=== PATIENT | male | born 1955 | race Caucasian/White ===

== ENCOUNTER 2016-10-27 12:22 | Inpatient (IN) | payer OTHER ==
[~2016-10-27] VITALS: Ht 167.6 cm; Wt 123.2 kg
--- NOTE | 2016-10-27 13:05 | DIAGNOSTIC IMAGING REPORT ---
PROCEDURE: CT HEAD WITHOUT CONTRAST INDICATION: STROKE TECHNIQUE: Axial CT images were acquired through the head. Coronal and sagittal reformations were created. COMPARISON: None. FINDINGS: There is an old left frontal stroke. The left frontal horn is enlarged. The calvarium is intact. The paranasal sinuses and mastoid air cells are normally aerated. The extracranial soft tissues and orbits are normal. IMPRESSION: 1. Old left frontal infarct. No evidence of new or recent infarction. All CT scans at this facility use dose modulation, iterative reconstruction, and/or weight-based dosing when appropriate to reduce radiation dose to as low as reasonably achievable.
--- NOTE | 2016-10-27 13:07 | DIAGNOSTIC IMAGING REPORT ---
PROCEDURE: XR CHEST 1 VIEW INDICATION: SHORTNESS OF BREATH TECHNIQUE: Portable AP view 12:55 p.m. COMPARISON: Chest 10/16 eight FINDINGS: Lungs are clear. Heart and mediastinum are normal. Thorax is normal. IMPRESSION: 1. Negative chest.
--- NOTE | 2016-10-27 14:21 | ED ORDER SUMMARY ---
..... Patient: TARAH NINO OrderSheet [facility] VisitID: [id number] [place] [address] 61y, M Registration Date/Time: 10/27/2016 ORDER SHEET Weight: 120.2 kg (stated) Allergies: No Known Drug Allergy GENERAL ORDERS: Chest 1V Urgent (12:34 10/27/2016 [facility] (Ack 12:40 LTapper) (14:[address] CT Head wo Cont Urgent (12:34 10/27/2016 PHwvchinson DO) (Ack 12:40 LTapper) (14:15 EInderbitzen R.N.) Insurance Office Manager (Continuous) (12:10/27/2016 PHwv DO) (12:47 SStone R.N.) Carbamazepine (Tegretol) Urgent (12:35 10/27/2016 [facility] (Ack 12:40 LTapper) (13:07 EInderbitzen R.N.) Cardiac Panel Stat (12:35 10/27/2016 [facility]) (Ack 12:40 LTapper) (13:07 EInderbitzen R.N.) Fibrinogen Level Urgent (12:35 10/27/2016 PHwvchinson DO) (Ack 12:40 LTapper) (13:07 EInderbitzen R.N.) PT with INR Urgent (12:35 10/27/2016 [facility] (Ack 12:40 LTapper) (13:07 EInderbitzen R.N.) PTT Urgent (12:35 10/27/2016 [facility] (Ack 12:40 LTapper) (13:07 EInderbitzen R.N.) Stroke Panel Stat (12:35 10/27/2016 [facility]) (Ack 12:40 LTapper) (13:07 EInderbitzen R.N.) Type & Screen Urgent (12:35 10/27/2016 [facility] (Ack 12:40 LTapper) (13:07 EInderbitzen R.N.) EKG - ER Stat (12:35 10/27/2016 utson DO) (Ack 12:39 LTapper) (12:47 RKaruga) Notify MD if glucose <70 or >130 (12:35 10/27/2016 utson DO) (12:47 RKaruga) NPO (12:35 10/27/2016 utchinson DO) (12:48 SStone R.N.) Oxygen (2 L/min) (NC) (12:35 10/27/2016 PHutchinson DO) (12:48 SStone R.N.) POC Glucose (12:35 10/27/2016 utchinson ) (12:[facility] Pulse oximeter (12:35 10/27/2016 ) (12:48 SStone R.N.) Swallowing screen req on all pts prior to first PO intake (12:35 10/27/2016 ) (15:03 EInderbitzen R.N.) Vitals - Neuro (12:35 10/27/2016 [facility] (13:07 EInderbitzen R.N.) Call (Place call to): ( stroke attending) (13:45 10/27/2016 utchinson DO) (13:56 LTapper) Call (Place call to): ( stroke attending) (13:51 10/27/2016 utchinson DO) (13:52 [facility]) (Cancelled: Duplicate Order13:52 [facility]) Call (Place call to): (Dr Miranda) (13:52 10/27/2016 utchinson DO) (13:59 LTapper) UA-Culture if indicated Urgent (14:07 10/27/2016 utchin) (Ack 14:10 LTapper) (14:34 EHassan R.N.) Urine Drug Screen Urgent (14:07 10/27/2016 PHutchin) (Ack 14:10 LTapper) (14:34 EHassan R.N.) US Carotid Doppler Right Urgent (14:09 10/27/2016 chin) (Cancelled: Other14:10 [facility]) US Carotid Doppler Bilat Urgent (14:11 10/27/2016 [facility]) (Ack 14:24 LTapper) MRI Brain w/wo IACS w/wo Cont (Not Applicable) Urgent (14:50 10/27/2016 [facility]) (Ack 14:57 LTapper) MEDICATION ORDERS: Aspirin PO 325 mg (if not taken today) (13:45 10/27/2016 [facility]) (15:03 EInderbitjermaine R.N.) IV FLUIDS: IV NS : initial bolus 500 mL (1000 mL/hr), then 250 mL/hr for X2 (NOW) (12:34 10/27/2016 [facility]) (13:05 EInderbitzen R.N.) Zofran IV 4 mg (NOW) (12:34 10/27/2016 [facility]) (13:07 EInderbitzen R.N.) ORDER SHEET NOTES: [Electronically signed by Trinidad Whitfield R.N. (15:32 10/27/2016)] [Electronically signed by Ish Acevedo DO (21:37 10/27/2016)] [Electronically locked/signed by Trinidad Whitfield R.N. (15:32 10/27/2016)]
--- NOTE | 2016-10-27 14:21 | ED NURSING NOTES ---
Clinical Report - Nurses [facility] [address] [place] [place] [address] 10/27/2016 12:24 [id number] Triage time 12:33. Acuity: LEVEL 2. Chief Complaint: WEAKNESS, IMPAIRED SPEECH, FACIAL DROOP and DIFFICULTY WALKING and (right-sided facial droop baseline from previous CVA). ( blood sugar 91). ZA COMA SCORE: [place] Coma Scale: 15- eyes open spontaneously (4); best verbal response- oriented x 4 (5); best motor response- obeys commands (6). --12:38 Francine Quinones R.N. 12:33 10/27/16. BP: 134/79. HR: 59. RR: 16. O2 saturation: 96%. Temp: 98 F. Pain level now: 0/10. --12:38 Francine Quinones R.N. Weight: 120.2 kg stated. Height/Length: 66 inches Per Patient. BMI: 42.8. --12:35 Francine Quinones R.N. Medications Advair Diskus Inhalation, daily. Aspirin Oral 325mg. Atenolol Oral 25 mg, daily. BuPROPion HCl Oral 150mg, daily. Carisoprodol Oral 350 mg, 4x a day. Crestor Oral 10 mg, daily. Diazepam Oral 10 mg, at bedtime. Docusate Sodium Oral (Capsule 100 mg) 2 capsules. Doxazosin Mesylate Oral (Tablet 2 mg) 1 tablet. --12:40 Francine Quinones R.N. Hydrocodone-Acetaminophen Oral 10 mg, as needed. Naproxen Oral 500 mg, 2x a day as needed. Senna Oral (Tablet 8.6 mg) 2 tablets. Venlafaxine HCl Oral 50 mg, 2x a day. Ventolin HFA Inhalation 2 puffs, as needed. --12:40 Francine Quinones R.N. Allergies No Known Drug Allergy. --12:40 Francine Quinones R.N. History Arrived by private vehicle. Historian: patient and family (marine, ). Accompanied by family. Primary physician (reilly). This started last night. Patient was last known well (Unknown last known well). He has had difficulty with speech and trouble walking. ( blood sugar 91 on triage). Treatment TRAIN DIRECTOR: None. PAST MEDICAL HX: Hypertension. Stroke 2009. SOCIAL HX: Current every day light tobacco smoker- less than 1/2 a pack per day. No alcohol use or drug use. No infectious disease exposure. NUTRITIONAL RISK ASSESSMENT: The nutritional risk assessment revealed no deficiencies. FALL RISK ASSESSMENT: Fall risk assessment completed. Risk factors identified include patient age greater than 65 years and impairment of mobility. Fall interventions initiated. Patient placed on stretcher. Side rails up x2. Brakes on Bed in low position. Patient visible from nurses' station. Family at bedside. FUNCTIONAL ASSESSMENT: Functional assessment performed: requires assistance with the activities of daily living; uses cane. --12:38 Francine Quinones R.N. PAST MEDICAL HX: ( hypercholesterolemia). --12:40 Francine Quinones R.N. Interventions ID band on patient. STROKE protocol initiated. To treatment room. --12:38 Francine Quinones R.N. PHYSICAL ASSESSMENT To room via wheelchair. Baseline functional status: usually alert. Verbal response: usually appropriate. Motor response: usually pre-existing weakness in the right side ( pt slow to respond to verbal, word searching, but does answer appropriately). GENERAL / NEURO / PSYCH: Awake. Alert. Appears in no acute distress. Moderate slurred speech (slow to respond). Strength is unequal; left snack steward is greater than the right snack steward. He has had pre-existing weakness (facial droop). HEENT: Right-sided facial weakness. Pupils equal, round and reactive to light. EOM intact. RESPIRATORY: Breath sounds within normal limits. Respirations not labored. CVS: Cardiac rhythm: sinus bradycardia. SKIN: Skin is intact, warm and dry. --12:45 Francine Quinones R.N. NURSING PROGRESS NOTES 12:46 10/27/2016 Site #1 started via IV in the left antecubital space with an 20g angiocath; one attempt. Blood drawn: rainbow set. Labeled in the presence of the patient and sent to the lab. Saline lock flushed with 10 mL saline. --12:46 Stone, Francine, R.N. Monitoring of patient in place. Finger stick glucose: 91. Patient gowned. Head of bed elevated. Reassurance given. Patient transported to [place] by stretcher with tech. Patient identifiers checked. Call light placed in reach. Side rails up x 2. Bed placed in lowest position. Brakes of bed on. --12:46 Francine Quinones R.N. EKG time: (12:47 PM). EKG was performed by a tech and shown to the ED physician. Finger stick glucose: 91 mg/dL; performed by tech; result shown to the RN. --12:48 Bernarda Pathak Patient returned from [place] with tech. (12:56). --12:56 Francine Quinones R.N. ( report to KAYKAY Abdi to assume care.). --13:05 Francine Quinones R.N. 13:05 10/27/2016 Started bag #1 1000 mL IV Fluids IV NS (Saline); bolus of 500 mL over 30 minute(s) then at 250 mL/hr over 2 hour(s) via site #1 via IV pump. Allergies verified and confirmed 5 rights. IV patency established. IV site checked: no pain, redness, or swelling. IV flushed thoroughly pre- and post-medication administration. --13:05 Trinidad Whitfield R.N. 13:07 10/27/2016 Zofran (Ondansetron HCl) IVP 4 mg given over 1 minute(s) via site #1. Allergies verified and confirmed 5 rights. IV patency established. IV site checked: no pain, redness, or swelling. IV flushed thoroughly pre- and post-medication administration. IVP given by RN. --13:07 Trinidad Whitfield R.N. 13:08 10/27/16. BP: 125/85. HR: 55. RR: 19. O2 saturation: 99% on nasal cannula at 2 liters/minute. --13:08 Trinidad Whitfield R.N. 13:58 10/27/16. Cardiac rhythm: sinus bradycardia. The patient reports no complaints and he is calm and resting quietly. ( family at bedside). --13:58 Trinidad Whitfield R.N. 13:58 10/27/16. BP: 123/68. HR: 57. RR: 16. O2 saturation: 100%. Pain level now 0/10. --13:58 Trinidad Whitfield R.N. 14:31 10/27/16. Patient ID band checked for patient name and birthdate: patient confirmed. Instructions provided to collect clean catch urine and patient verbalized understanding. Clean catch urine collected with return of yellow-colored clear urine; sample sent to lab for urinalysis. Specimen labeled in the presence of the patient. --14:32 Trinidad Whitfield R.N. 14:59 10/27/16. Cardiac rhythm: sinus bradycardia. --14:59 Trinidad Whitfield R.N. 14:59 10/27/16. BP: 131/79. HR: 58. RR: 16. O2 saturation: 100%. Temp: 98.5 F. Pain level now 0/10. --14:59 Trinidad Whitfield R.N. 15:00 10/27/2016 IV Fluids IV NS Continued: at the rate of 250 mL/hr. 250 mL remaining bag #1. IV patency established. IV site checked: no pain, redness, or swelling. IV flushed thoroughly. --15:00 Trinidad Whitfield R.N. 15:03 10/27/2016 Aspirin PO Tablets 325 mg given. Allergies verified and confirmed 5 rights. --15:03 Trinidad Whitfield R.N. Swallow screen: dysphagia risk factors noted: coughing. He failed the swallow screen. --15:03 Trinidad Whitfield R.N. DISPOSITION / DISCHARGE 15:22 10/27/2016 Site #[address] upon admission; patent; flushes easily. --15:22 Trinidad Whitfield R.N. 15:23 10/27/16. Cardiac rhythm: sinus bradycardia. Condition at departure: improved and stable. The goals identified in the patient's plan of care were met. Admitted to Acute Care (209). Transported via stretcher with IV. Report was given to a nurse via a phone call. Report included patient's care, treatment, medications, reviewed medication reconcilliation, and condition (including any recent changes or anticipated changes). All questions were answered. Report was acknowledged and care was transferred. (to Hillary). Bed obtained and ready (209). ( to call floor when US is done.). --15:23 Trinidad Whitfield R.N. 14:58 10/27/16. BP: 131/79. HR: 58. RR: 16. O2 saturation: 100%. Temp: 98.5 F. Pain level now 0/10. 13:56 10/27/16. BP: 123/68. HR: 57. RR: 16. O2 saturation: 100%. Pain level now 0/10. 13:08 10/27/16. BP: 125/85. HR: 55. RR: 19. O2 saturation: 99% on nasal cannula at 2 liters/minute. 12:33 10/27/16. BP: 134/79. HR: 59. RR: 16. O2 saturation: 96%. Temp: 98 F. Pain level now: 0/10. --15:23 Trinidad Whitfield R.N. Locked/Released at 10/27/2016 15:32 by Trinidad Whitfield R.N.
--- NOTE | 2016-10-27 14:21 | ED NURSING NOTES ---
Clinical Report - Nurses [facility] [address] [place] [place] [address] 10/27/2016 12:24 [id number] Triage time 12:33. Acuity: LEVEL 2. Chief Complaint: WEAKNESS, IMPAIRED SPEECH, FACIAL DROOP and DIFFICULTY WALKING and (right-sided facial droop baseline from previous CVA). ( blood sugar 91). ZA COMA SCORE: [place] Coma Scale: 15- eyes open spontaneously (4); best verbal response- oriented x 4 (5); best motor response- obeys commands (6). --12:38 Francine Quinones R.N. 12:33 10/27/16. BP: 134/79. HR: 59. RR: 16. O2 saturation: 96%. Temp: 98 F. Pain level now: 0/10. --12:38 Francine Quinones R.N. Weight: 120.2 kg stated. Height/Length: 66 inches Per Patient. BMI: 42.8. --12:35 Francine Quinones R.N. Medications Advair Diskus Inhalation, daily. Aspirin Oral 325mg. Atenolol Oral 25 mg, daily. BuPROPion HCl Oral 150mg, daily. Carisoprodol Oral 350 mg, 4x a day. Crestor Oral 10 mg, daily. Diazepam Oral 10 mg, at bedtime. Docusate Sodium Oral (Capsule 100 mg) 2 capsules. Doxazosin Mesylate Oral (Tablet 2 mg) 1 tablet. --12:40 Francine Quinones R.N. Hydrocodone-Acetaminophen Oral 10 mg, as needed. Naproxen Oral 500 mg, 2x a day as needed. Senna Oral (Tablet 8.6 mg) 2 tablets. Venlafaxine HCl Oral 50 mg, 2x a day. Ventolin HFA Inhalation 2 puffs, as needed. --12:40 Francine Quinones R.N. Allergies No Known Drug Allergy. --12:40 Francine Quinones R.N. History Arrived by private vehicle. Historian: patient and family (marine, ). Accompanied by family. Primary physician (reilly). This started last night. Patient was last known well (Unknown last known well). He has had difficulty with speech and trouble walking. ( blood sugar 91 on triage). Treatment PRICING STRATEGIST: None. PAST MEDICAL HX: Hypertension. Stroke 2009. SOCIAL HX: Current every day light tobacco smoker- less than 1/2 a pack per day. No alcohol use or drug use. No infectious disease exposure. NUTRITIONAL RISK ASSESSMENT: The nutritional risk assessment revealed no deficiencies. FALL RISK ASSESSMENT: Fall risk assessment completed. Risk factors identified include patient age greater than 65 years and impairment of mobility. Fall interventions initiated. Patient placed on stretcher. Side rails up x2. Brakes on Bed in low position. Patient visible from nurses' station. Family at bedside. FUNCTIONAL ASSESSMENT: Functional assessment performed: requires assistance with the activities of daily living; uses cane. --12:38 Francine Quinones R.N. PAST MEDICAL HX: ( hypercholesterolemia). --12:40 Francine Quinones R.N. Interventions ID band on patient. STROKE protocol initiated. To treatment room. --12:38 Francine Quinones R.N. PHYSICAL ASSESSMENT To room via wheelchair. Baseline functional status: usually alert. Verbal response: usually appropriate. Motor response: usually pre-existing weakness in the right side ( pt slow to respond to verbal, word searching, but does answer appropriately). GENERAL / NEURO / PSYCH: Awake. Alert. Appears in no acute distress. Moderate slurred speech (slow to respond). Strength is unequal; left senior java j2ee developer is greater than the right senior java j2ee developer. He has had pre-existing weakness (facial droop). HEENT: Right-sided facial weakness. Pupils equal, round and reactive to light. EOM intact. RESPIRATORY: Breath sounds within normal limits. Respirations not labored. CVS: Cardiac rhythm: sinus bradycardia. SKIN: Skin is intact, warm and dry. --12:45 Francine Quinones R.N. NURSING PROGRESS NOTES 12:46 10/27/2016 Site #1 started via IV in the left antecubital space with an 20g angiocath; one attempt. Blood drawn: rainbow set. Labeled in the presence of the patient and sent to the lab. Saline lock flushed with 10 mL saline. --12:46 Stone, Francine, R.N. Monitoring of patient in place. Finger stick glucose: 91. Patient gowned. Head of bed elevated. Reassurance given. Patient transported to [place] by stretcher with tech. Patient identifiers checked. Call light placed in reach. Side rails up x 2. Bed placed in lowest position. Brakes of bed on. --12:46 Francine Quinones R.N. EKG time: (12:47 PM). EKG was performed by a tech and shown to the ED physician. Finger stick glucose: 91 mg/dL; performed by tech; result shown to the RN. --12:48 Bernarda Pathak Patient returned from [place] with tech. (12:56). --12:56 Francine Quinones R.N. ( report to KAYKAY Abdi to assume care.). --13:05 Francine Quinones R.N. 13:05 10/27/2016 Started bag #1 1000 mL IV Fluids IV NS (Saline); bolus of 500 mL over 30 minute(s) then at 250 mL/hr over 2 hour(s) via site #1 via IV pump. Allergies verified and confirmed 5 rights. IV patency established. IV site checked: no pain, redness, or swelling. IV flushed thoroughly pre- and post-medication administration. --13:05 Trinidad Whitfield R.N. 13:07 10/27/2016 Zofran (Ondansetron HCl) IVP 4 mg given over 1 minute(s) via site #1. Allergies verified and confirmed 5 rights. IV patency established. IV site checked: no pain, redness, or swelling. IV flushed thoroughly pre- and post-medication administration. IVP given by RN. --13:07 Trinidad Whitfield R.N. 13:08 10/27/16. BP: 125/85. HR: 55. RR: 19. O2 saturation: 99% on nasal cannula at 2 liters/minute. --13:08 Trinidad Whitfield R.N. 13:58 10/27/16. Cardiac rhythm: sinus bradycardia. The patient reports no complaints and he is calm and resting quietly. ( family at bedside). --13:58 Trinidad Whitfield R.N. 13:58 10/27/16. BP: 123/68. HR: 57. RR: 16. O2 saturation: 100%. Pain level now 0/10. --13:58 Trinidad Whitfield R.N. 14:31 10/27/16. Patient ID band checked for patient name and birthdate: patient confirmed. Instructions provided to collect clean catch urine and patient verbalized understanding. Clean catch urine collected with return of yellow-colored clear urine; sample sent to lab for urinalysis. Specimen labeled in the presence of the patient. --14:32 Trinidad Whitfield R.N. 14:59 10/27/16. Cardiac rhythm: sinus bradycardia. --14:59 Trinidad Whitfield R.N. 14:59 10/27/16. BP: 131/79. HR: 58. RR: 16. O2 saturation: 100%. Temp: 98.5 F. Pain level now 0/10. --14:59 Trinidad Whitfield R.N. 15:00 10/27/2016 IV Fluids IV NS Continued: at the rate of 250 mL/hr. 250 mL remaining bag #1. IV patency established. IV site checked: no pain, redness, or swelling. IV flushed thoroughly. --15:00 Trinidad Whitfield R.N. 15:03 10/27/2016 Aspirin PO Tablets 325 mg given. Allergies verified and confirmed 5 rights. --15:03 Trinidad Whitfield R.N. Swallow screen: dysphagia risk factors noted: coughing. He failed the swallow screen. --15:03 Trinidad Whitfield R.N. DISPOSITION / DISCHARGE 15:22 10/27/2016 Site #[address] upon admission; patent; flushes easily. --15:22 Trinidad Whitfield R.N. 15:23 10/27/16. Cardiac rhythm: sinus bradycardia. Condition at departure: improved and stable. The goals identified in the patient's plan of care were met. Admitted to Acute Care (209). Transported via stretcher with IV. Report was given to a nurse via a phone call. Report included patient's care, treatment, medications, reviewed medication reconcilliation, and condition (including any recent changes or anticipated changes). All questions were answered. Report was acknowledged and care was transferred. (to Hillary). Bed obtained and ready (209). ( to call floor when US is done.). --15:23 Trinidad Whitfield R.N. 14:58 10/27/16. BP: 131/79. HR: 58. RR: 16. O2 saturation: 100%. Temp: 98.5 F. Pain level now 0/10. 13:56 10/27/16. BP: 123/68. HR: 57. RR: 16. O2 saturation: 100%. Pain level now 0/10. 13:08 10/27/16. BP: 125/85. HR: 55. RR: 19. O2 saturation: 99% on nasal cannula at 2 liters/minute. 12:33 10/27/16. BP: 134/79. HR: 59. RR: 16. O2 saturation: 96%. Temp: 98 F. Pain level now: 0/10. --15:23 Trinidad Whitfield R.N. Locked/Released at 10/27/2016 15:32 by Trinidad Whitfield R.N.
--- NOTE | 2016-10-27 14:21 | ED ORDER SUMMARY ---
..... Patient: TARAH NINO OrderSheet [facility] VisitID: [id number] [place] [address] 61y, M Registration Date/Time: 10/27/2016 ORDER SHEET Weight: 120.2 kg (stated) Allergies: No Known Drug Allergy GENERAL ORDERS: Chest 1V Urgent (12:34 10/27/2016 [facility] (Ack 12:40 LTapper) (14:15 EInderbitzen R.N.) CT Head wo Cont Urgent (12:34 10/27/2016 PHnhchinson DO) (Ack 12:40 LTapper) (14:15 EInderbitzen R.N.) Telephone Operator (Continuous) (12:10/27/2016 PHnh DO) (12:47 SStone R.N.) Carbamazepine (Tegretol) Urgent (12:35 [facility]27/2016 [facility] (Ack 12:40 LTapper) (13:07 EInderbitzen R.N.) Cardiac Panel Stat (12:35 10/27/2016 [facility] (Ack 12:40 LTapper) (13:07 EInderbitzen R.N.) Fibrinogen Level Urgent (12:35 10/27/2016 PHnhchinson DO) (Ack 12:40 LTapper) (13:07 EInderbitzen R.N.) PT with INR Urgent (12:35 10/27/2016 [facility] (Ack 12:40 LTapper) (13:07 EInderbitzen R.N.) PTT Urgent (12:35 10/27/2016 [facility] (Ack 12:40 LTapper) (13:07 EInderbitzen R.N.) Stroke Panel Stat (12:35 10/27/2016 [facility] (Ack 12:40 LTapper) (13:07 EInderbitzen R.N.) Type & Screen Urgent (12:35 10/27/2016 [facility] (Ack 12:40 LTapper) (13:07 EInderbitzen R.N.) EKG - ER Stat (12:35 10/27/2016 utson DO) (Ack 12:39 LTapper) (12:47 RKaruga) Notify MD if glucose <70 or >130 (12:35 10/27/2016 utson DO) (12:47 RKaruga) NPO (12:35 10/27/2016 utchinson DO) (12:48 SStone R.N.) Oxygen (2 L/min) (NC) (12:35 10/27/2016 PHutchinson DO) (12:48 SStone R.N.) POC Glucose (12:35 10/27/2016 utchinson ) (12:47 [facility] Pulse oximeter (12:35 10/27/2016 ) (12:48 SStone R.N.) Swallowing screen req on all pts prior to first PO intake (12:35 10/27/2016 ) (15:03 EInderbitzen R.N.) Vitals - Neuro (12:35 10/27/2016 [facility]) (13:07 EInderbitzen R.N.) Call (Place call to): ( stroke attending) (13:45 10/27/2016 utchinson DO) (13:56 LTapper) Call (Place call to): ( stroke attending) (13:51 10/27/2016 utchinson DO) (13:52 [facility]) (Cancelled: Duplicate Order13:52 [facility]) Call (Place call to): (Dr Miranda) (13:52 10/27/2016 utchinson DO) (13:59 LTapper) UA-Culture if indicated Urgent (14:07 10/27/2016 utchin) (Ack 14:10 LTapper) (14:34 EHassan R.N.) Urine Drug Screen Urgent (14:07 10/27/2016 PHutchin) (Ack 14:10 LTapper) (14:34 EHassan R.N.) US Carotid Doppler Right Urgent (14:09 10/27/2016 chin) (Cancelled: Other14:10 [facility]) US Carotid Doppler Bilat Urgent (14:11 10/27/2016 [facility]) (Ack 14:24 LTapper) MRI Brain w/wo IACS w/wo Cont (Not Applicable) Urgent (14:50 10/27/2016 [facility]) (Ack 14:57 LTapper) MEDICATION ORDERS: Aspirin PO 325 mg (if not taken today) (13:45 10/27/2016 [facility]) (15:03 EInderbitjermaine R.N.) IV FLUIDS: IV NS : initial bolus 500 mL (1000 mL/hr), then 250 mL/hr for X2 (NOW) (12:34 10/27/2016 [facility]) (13:05 EInderbitzen R.N.) Zofran IV 4 mg (NOW) (12:34 10/27/2016 [facility]) (13:07 EInderbitzen R.N.) ORDER SHEET NOTES: [Electronically signed by Trinidad Whitfield R.N. (15:32 10/27/2016)] [Electronically signed by Ish Acevedo DO (21:37 10/27/2016)] [Electronically locked/signed by Trinidad Whitfield R.N. (15:32 10/27/2016)]
--- NOTE | 2016-10-27 14:21 | ED CLINICAL REPORT ---
Clinical Report - Physicians/Mid Levels [facility] [address] [place], [place] [address] 10/27/2016 12:24 Patient: TARAH NINO Time Seen: 12:34. Arrived- By private vehicle. Historian- patient. History limited by aphasia. Physical Exam limited by aphasia. HISTORY OF PRESENT ILLNESS Chief Complaint: WEAKNESS, DIFFICULTY STANDING and WALKING and IMPAIRED SPEECH. This started about 24 hours ago and is still present. It was gradual in onset and has been constant. The patient has had weakness of the left arm, left hand, left leg and left foot, (his pre-existing right side weakness is worse today - causing him to fall once this am - no injury; was assisted by caregiver). He has had difficulty with speech. At its maximum deficit described as moderate. When seen in the E.D.,deficit described as moderate. The patient has had dizziness. No seizure or blackouts. Usually is alert and oriented X3. Does not usually have normal mobility. (chronic right sided weakness - has caregiver for assistance with daily activities). Similar symptoms previously: Diagnosis: CVA. Recent medical care: Not recently seen/assessed. REVIEW OF SYSTEMS No fever, headache, head injury, chest pain or difficulty breathing. No cough, sputum production, sore throat, abdominal pain or nausea. No diarrhea, black stools, difficulty with urination, skin rash or enlarged lymph nodes. No vomiting or bloody stools. All systems otherwise negative, except as recorded above. PAST HISTORY See nurses notes. Hypertension. Chronic obstructive pulmonary disease. Hyperlipidemia. A single stroke in 2009 with residual deficit: hemiparesis. Arthritis. Chronic back pain. Medications: Hydrocodone-Acetaminophen Oral 10 mg, as needed. Naproxen Oral 500 mg, 2x a day as needed. Senna Oral (Tablet 8.6 mg) 2 tablets. Venlafaxine HCl Oral 50 mg, 2x a day. Ventolin HFA Inhalation 2 puffs, as needed. Advair Diskus Inhalation, daily. Aspirin Oral 325mg. Atenolol Oral 25 mg, daily. BuPROPion HCl Oral 150mg, daily. Carisoprodol Oral 350 mg, 4x a day. Crestor Oral 10 mg, daily. Diazepam Oral 10 mg, at bedtime. Docusate Sodium Oral (Capsule 100 mg) 2 capsules. Doxazosin Mesylate Oral (Tablet 2 mg) 1 tablet. Allergies: No Known Drug Allergy. SOCIAL HISTORY Smoker- current status unknown. No alcohol use or drug use. Residence: [place]. Marital status: (x 40 years). ADDITIONAL NOTES The nursing notes have been reviewed. PHYSICAL EXAM Vital Signs: 10/27/2016 12:33 BP: 134/79. HR: 59. RR: 16. O2 saturation: 96%. Temp: 98 F. Pain level now: 0/10. Appearance: Alert. The patient's speech is slurred. Odor of alcohol is not present. Head: Head atraumatic. Eyes: Pupils equal, round and reactive to light. ENT: Normal ENT inspection. Airway intact. Pharynx normal. Neck: Normal inspection. Neck supple. No meningeal signs or carotid bruit. CVS: Normal heart rate and rhythm. Heart sounds normal. Pulses normal. Respiratory: No respiratory distress. Breath sounds normal. Abdomen: Soft and nontender. Obese. Back: Normal inspection. Skin: Skin warm and dry. Normal skin color. No rash. Normal skin turgor. Extremities: Extremities exhibit normal ROM. No calf tenderness. Neuro: Alert. Abnormal verbal response (expressive aphasia). No receptive aphasia. Cranial nerve deficit present, as evidenced by right facial numbness. No facial droop or weakness, dilated pupil or EOM weakness or palsy. No ptosis, visual field deficit, loss of the corneal reflex, nystagmus or hearing deficit. No uvular deviation, tongue deviation, difficulty swallowing, trapezius weakness or sternocleidomastoid weakness. No cerebellar findings. No motor deficit. Sensory deficit present. Altered sensation to light touch on the right face, right arm and right leg. Reflex exam: right biceps 2+, left biceps 1+, right patellar 2+, left patellar 1+, right Achilles 0 and left Achilles 0. NIH Stroke Scale: score 4. Level of Consciousness: alert (0). LOC Questions: both (0). LOC Commands: both (0). Best gaze: normal (0). Visual field loss: none (0). Facial palsy: normal (0). Motor arm: no drift right arm (0) and no drift left arm (0). Motor leg: drift right leg (1). Limb ataxia: none (0). Sensory loss: mild to moderate (1). Aphasia: mild to moderate (1). Dysarthria: mild to moderate (1). Extinction and inattention: none (0). LABS, X-RAYS, AND EKG EKG: EKG time: (12:47). Rate: 60. Normal P waves. Normal ANDREW. Normal QRS complex. Nondiagnostic Q waves in lead III. Normal axis. Non-specific ST segment / T wave abnormalities. The study has been interpreted contemporaneously by me. Artifact present. Rhythm Strip #1: Normal sinus rhythm. Regular rhythm. Narrow QRS complexes. No ectopy. Chest X-ray: No acute disease. Normal lung markings present. Normal heart size. Mediastinum normal. Great vessels normal. Soft tissues abnormal. No infiltrate. Views: AP (portable). The X-rays were independently viewed by me, interpreted by the radiologist and discussed with the radiologist. CT Head: (IMPRESSION: 1. Old left frontal infarct. No evidence of new or recent infarction.). Head CT performed without contrast. The study was independently viewed by me, interpreted by the radiologist and discussed with the radiologist. Duplex Ultrasound: Right and left carotid study. IMPRESSION: 1. Mild bilateral ICA plaque formation 2. Bilateral ICA 16-49% stenosis. The exam was performed by a security installation technician. The study was independently viewed by me, interpreted by the radiologist and discussed with the radiologist. MRI Brain: Note- IMPRESSION: 1. Acute medial left frontal lobe infarct in the distribution of the left anterior cerebral artery 2. Old 3 x 7.5 cm left frontal lobe infarct. Study type: MRI with and without contrast. The study was independently viewed by me, interpreted by the radiologist and discussed with the radiologist. Laboratory Tests: UA-Culture if indicated: (FIDEL: 10/27/2016 14:20) ( MsgRcvd 10/27/2016 15:05) Final results Test Result Flag Units (Reference) URINE COLOR YELLOW URINE APPEARANCE CLEAR URINE GLUCOSE NEGATIVE (NEGATIVE) URINE BILIRUBIN NEGATIVE (NEGATIVE) URINE KETONE NEGATIVE (NEGATIVE) URINE SPECIFIC GRAVITY >= 1.030 (1.010-1.030) URINE PH 5.5 (5.0-8.0) URINE PROTEIN NEGATIVE (NEGATIVE) URINE UROBILINOGEN 0.2 EU/dL (0.2-1.0) URINE NITRITE NEGATIVE (NEGATIVE) URINE BLOOD NEGATIVE (NEGATIVE) URINE LEUK ESTERASE NEGATIVE (NEGATIVE) URINE RBC RARE rbc/hpf (0-1) URINE WBC 1-3 wbc/hpf (0-1) URINE EPITHELIAL CELLS 0-1 EPI/hpf (0-5) URINE BACTERIA TRACE (<1+) (NONE SEEN) URINE COMMENT CULT NOT INDICATED 1+ MUCOUSURINE CULTURES ARE SET-UP BASED ON THE FOLLOWING CRITERIA:POSITIVE NITRITEPOSITIVE LEUKOCYTE ESTERASEGREATER THAN 10 WHITE BLOOD CELLSMODERATE (2+) OR GREATER BACTERIA CBC w Diff: (FIDEL: 10/27/2016 12:40) ( MsgRcvd 10/27/2016 12:46) Final results Test Result Flag Units (Reference) WHITE BLOOD COUNT 10.5 K/uL (4.5-11.5) RED BLOOD COUNT 4.59 M/uL (4.50-5.90) HEMOGLOBIN 14.4 gm/dL (13.5-17.5) HEMATOCRIT 43.5 % (41.0-53.0) MEAN CELL VOLUME 95 fL (80-100) MEAN CORPUSCULAR HGB 32 pg (26-34) MEAN CORPUSCULAR HGB CONC 33 g/dL (31-37) RED CELL DISTRIBUTION WIDTH 13.6 % (11.6-14.8) PLATELET COUNT 248 K/uL (150-400) NEUTROPHIL % 66.5 % (50-75) LYMPH % 25.6 % (25-40) MONO % 6.2 % (3-14) EOSINOPHIL % 1.2 % (0-4) BASOPHIL % 0.5 % (0-2) PT with INR: (FIDEL: 10/27/2016 12:40) ( MsgRcvd 10/27/2016 12:56) Final results Test Result Flag Units (Reference) INR 1.0 (0.8-1.2) Low Intensity Therapy: INR 1.5-2.0 PT range 18.5-23.1Mod.Intensity Therapy: INR 2.0-3.0 PT range 23.1-31.5High Intensity Therapy: INR 2.5-3.5 PT range 27.4-35.5High Intensity Therapy 2: INR 3.0-4.0 PT range 31.5-39.3 APTT 30 SECONDS (24-34) FIBRINOGEN 317 mg/dL (193-455) D-DIMER QUANTITATIVE 1.15 H ug/mLFEU (0.27-0.52) The primary value of this quantitative assay relates toits negative predictive value (i.e. exclusion) of pulmonaryembolism/deep vein thrombosis/DIC.Elevated levels of d-dimer may also occur with:, age, cancer, inflammation, liver disease,post-op, infection, hematoma, coronary disease, peripheralarteriopathy, bleeding disorders and thrombolytic treatment.Results should be correlated with other clinical andradiological data.Testing Methodology: Latex Immunoassay Urine Drug Screen: (FIDEL: 10/27/2016 14:20) ( MsgRcvd 10/27/2016 15:11) Final results Test Result Flag Units (Reference) AMPHETAMINE/METHAMPHETAMINE NEGATIVE (NEGATIVE) BARBITURATE NEGATIVE (NEGATIVE) BENZODIAZEPINE POSITIVE H (NEGATIVE) CANNABINOID POSITIVE H (NEGATIVE) COCAINE NEGATIVE (NEGATIVE) ECSTASY POSITIVE H (NEGATIVE) METHADONE NEGATIVE (NEGATIVE) OPIATE POSITIVE H (NEGATIVE) The urine drug screen is a qualitative screening test fordrug overdose and abuse. All screen results should beconsidered as presumptive.Drugs screened for are as follows:BenzodiazepinesCocaineAmphetamines/MetamphetaminesTHC (Tetrahydrocannabinol)OpiatesBarbituratesEcstasyMethadonePositive results are unconfirmed. For confirmation, notifythe lab for the specimen to be sent to the reference lab.All confirmations must be performed by a differentmethodology.The ingestion of natural herbal and plant productscontaining Ephedra/Ephedra metabolites can produce in urineone or more substances capable of cross reacting withamphetamine/methamphetamine immunoassays. These testsprovide a preliminary result only. A more specificalternative chemical method must be used to obtain aconfirmed analytical result. [id number]: (FIDEL: 10/27/2016 12:40) ( MsgRcvd 10/27/2016 13:19) Final results Test Result Flag Units (Reference) CARBAMAZEPINE/TEGRETOL 0.1 L ug/mL (4.0-12.0) CHEM 13 PANEL: (FIDEL: 10/27/2016 12:40) ( MsgRcvd 10/27/2016 13:09) Final results Test Result Flag Units (Reference) GLUCOSE 105 mg/dL (70-110) BUN 22 H mg/dL (7-18) CREATININE 1.4 H mg/dL (0.6-1.3) Estimated GFR 54.58 mL/min Estimated GFR- >60 mL/min Note: Persistent reduction over 3 months in eGFR<60 mL/min/1.73 m2 defines CKD. Patients with eGFR values>=60 mL/min/1.73 m2 may also have CKD if evidence ofpersistent proteinuria. Additional information may be foundat [email or web address].org. SODIUM 144 mmol/L (136-145) POTASSIUM 4.5 mmol/L (3.5-5.1) CHLORIDE 109 H mmol/L (98-107) CARBON DIOXIDE 26 mmol/L (21-32) CALCIUM 8.5 mg/dL (8.5-10.1) TOTAL PROTEIN 7.0 g/dL (6.4-8.2) ALBUMIN 4.1 g/dL (3.3-5.0) BILIRUBIN, TOTAL 0.6 mg/dL (0.0-1.0) ALKALINE PHOSPHATASE 69 U/L (46-116) AST (SGOT) 10 L U/L (15-37) ALT (SGPT) 25 U/L (12-78) MAGNESIUM 2.0 mg/dL (1.8-2.4) CPK 108 U/L (24-260) TROPONIN I <0.05 ng/mL (0.00-1.5) TROPONIN REFERENCE RANGE:<0.1 NEGATIVE0.1-1.5 INDETERMINANT>1.5 POSITIVE Type & Screen: (FIDEL: 10/27/2016 12:40) ( MsgRcvd 10/27/2016 14:02) Final results Test Result Flag Units (Reference) PATIENT BLOOD TYPE O Negative Above is a corrected result. Previously reported on ( MsgRcvd 10/27/2016 13:42) as: PATIENT BLOOD TYPE O Negative ANTIBODY SCREEN NEGATIVE . Pulse Oximetry: 10/27/2016 12:33 O2 saturation: 96%. (FIO2 - room air). Interpretation: normal. PROGRESS AND PROCEDURES Course of Care: May keep at [facility] with MRI and Carotid duplex. Neuro feels may have MRI tomorrow if cannot get today. May need echo if not recently done. Discussed case with hospitalist, (Ruben call placed 14:18). Reviewed test results. Agreed upon treatment plan. Discussed case with on-call health care provider, (Kush ( stroke fellow) call returned 14:00 call returned 15:21). Reviewed test results. Agreed upon treatment plan. Patient/family counseled. Old ED records reviewed. Admission orders written. Disposition: Admitted to Acute Care. Condition: stable and improved. CLINICAL IMPRESSION Nontraumatic cerebrovascular accident- thrombotic ischemic infarct involving left anterior cerebral artery. TPA given and patient last known well 3 or more hours prior to administration. TPA was not administered because the time patient was last known well was greater than 3 hours prior to arrival and exclusion criteria were present. No hemorrhagic infarct or subarachnoid hemorrhage. INSTRUCTIONS Your Current Medications: CONTINUE TAKING THE FOLLOWING MEDICATIONS: Advair Diskus Inhalation : daily. Aspirin Oral : 325mg. Atenolol Oral : 25 mg daily. BuPROPion HCl Oral : 150mg daily. Carisoprodol Oral : 350 mg 4x a day. Crestor Oral : 10 mg daily. Diazepam Oral : 10 mg at bedtime. Docusate Sodium Oral : Capsule 100 mg, 2 capsules. Doxazosin Mesylate Oral : Tablet 2 mg, 1 tablet. Hydrocodone-Acetaminophen Oral : 10 mg, prn. Naproxen Oral : 500 mg 2x a day, prn. Senna Oral : Tablet 8.6 mg, 2 tablets. Venlafaxine HCl Oral : 50 mg 2x a day. Ventolin HFA Inhalation : 2 puffs, prn. (Electronically signed by Ish Acevedo DO 10/27/2016 21:37)
[2016-10-27 16:15] VITALS: BP 141/91
--- NOTE | 2016-10-27 16:29 | DIAGNOSTIC IMAGING REPORT ---
PROCEDURE: US BILATERAL CAROTID DOPPLER INDICATION: UNILATERAL WEAKNESS TECHNIQUE: Color Doppler duplex imaging of the carotid and vertebral vessels. COMPARISON: None. FINDINGS: Mild plaque formation of the bifurcations bilaterally. Vessels are patent. Right common carotid artery peak systolic velocity 79 cm/second. Right internal carotid artery peak systolic velocity 83 cm/second. Right external carotid artery peak systolic velocity 80 cm/second. Right vyixpyjc-zs-oewvfc carotid artery ratio 1.1 Right vertebral artery peak systolic velocity 89 cm/second antegrade. Left common carotid artery peak systolic velocity 79 cm/second. Left internal carotid artery peak systolic velocity 90 cm/second. Left external carotid artery peak systolic velocity 65 cm/second. Left xlytrdfj-xh-oortxm carotid artery ratio an 1.1 Left vertebral artery peak systolic velocity 71 cm/second antegrade. IMPRESSION: 1. Mild bilateral ICA plaque formation 2. Bilateral ICA 16-49% stenosis Velocity criteria are extrapolated from diameter data as defined by the Society of Radiologists in Ultrasound Consensus Conference, Radiology 2003; 229; 340-346.
--- NOTE | 2016-10-27 16:29 | DIAGNOSTIC IMAGING REPORT ---
PROCEDURE: US BILATERAL CAROTID DOPPLER INDICATION: UNILATERAL WEAKNESS TECHNIQUE: Color Doppler duplex imaging of the carotid and vertebral vessels. COMPARISON: None. FINDINGS: Mild plaque formation of the bifurcations bilaterally. Vessels are patent. Right common carotid artery peak systolic velocity 79 cm/second. Right internal carotid artery peak systolic velocity 83 cm/second. Right external carotid artery peak systolic velocity 80 cm/second. Right oybuexzs-lh-ybyeci carotid artery ratio 1.1 Right vertebral artery peak systolic velocity 89 cm/second antegrade. Left common carotid artery peak systolic velocity 79 cm/second. Left internal carotid artery peak systolic velocity 90 cm/second. Left external carotid artery peak systolic velocity 65 cm/second. Left jyxjyagw-uz-clezkd carotid artery ratio an 1.1 Left vertebral artery peak systolic velocity 71 cm/second antegrade. IMPRESSION: 1. Mild bilateral ICA plaque formation 2. Bilateral ICA 16-49% stenosis Velocity criteria are extrapolated from diameter data as defined by the Society of Radiologists in Ultrasound Consensus Conference, Radiology 2003; 229; 340-346.
--- NOTE | 2016-10-27 20:24 | DIAGNOSTIC IMAGING REPORT ---
PROCEDURE: MR BRAIN W/WO CONTRAST INDICATION: Altered mental status, initial encounter TECHNIQUE: Noncontrast T1 sagittal and T2 coronal images of the brain. T2, FLAIR, gradient and diffusion axial images with ADC map. Pregadolinium thin-cut T1 sagittal and coronal images of the pituitary fossa. Following 20 ml of intravenous gadolinium, thin-cut T1 sagittal and coronal images of the pituitary fossa were obtained followed by FAT-SAT T1 axial images of the brain. COMPARISON: Head CT 10/27/2016 FINDINGS: Acute mesial left frontal lobe infarct (8 x 1.2 cm) in the distribution of the left anterior cerebral artery. There is no mass effect, hemorrhage or abnormal enhancement. Old 3 x 7.5 cm left frontal infarct. Mild ex vacuo margin of the left lateral ventricle. Normal sulci. Minor right frontal lobe chronic ischemic changes. Normal vascular flow voids. Mastoids and sinuses are clear. IMPRESSION: 1. Acute medial left frontal lobe infarct in the distribution of the left anterior cerebral artery 2. Old 3 x 7.5 cm left frontal lobe infarct 3. Results discussed with Dr. Acevedo and Dr. Miranda was paged.
--- NOTE | 2016-10-27 21:37 | ED MAR SUMMARY ---
..... Medication Administration Record [facility] [address] [place] [address] Patient: TARAH NINO Visit ID: [id number] 61y, M Weight: 120.2 kg Height/Length: 66 in BMI: 42.8 ALLERGIES: No Known Drug Allergy Start 13:05 10/27/2016 Trinidad Whitfield R.N., Continued Upon Disposition 15:10/27/2016 Trinidad Whitfield R.N. Medication Administered: IV NS (SALINE), Dose: IV Fluids over 2 hour(s), Rate: 250 mL/hr, Bolus: 500 mL over 30 minute(s), Dispensed: 1000 mL bag, Site: #1 left AC. Medication Ordered: IV NS : initial bolus 500 mL (1000 mL/hr), then 250 mL/hr for X2 (NOW). Given 13:07 10/27/2016 Trinidad Whitfield R.N. Medication Administered: ZOFRAN [IVP] (ONDANSETRON HCL), Dose: 4 mg IVP over 1 minute(s), Site: #1 left AC. Medication Ordered: Zofran IV 4 mg (NOW). Given 15:03 10/27/2016 Trinidad Whitfield R.N. Medication Administered: ASPIRIN [PO], Dose: 325 mg Tablets PO. Medication Ordered: Aspirin PO 325 mg (if not taken today).
--- NOTE | 2016-10-27 21:37 | ED DISCHARGE INSTRUCTIONS ---
Patient: TARAH NINO General Instructions [facility] VisitID: [id number] [address] [place] [address] 61y, M Registration Date/Time: 10/27/2016 Nontraumatic cerebrovascular accident- thrombotic ischemic infarct involving left anterior cerebral artery. TPA given and patient last known well 3 or more hours prior to administration. TPA was not administered because the time patient was last known well was greater than 3 hours prior to arrival and exclusion criteria were present. No hemorrhagic infarct or subarachnoid hemorrhage. INSTRUCTIONS Your Current Medications: CONTINUE TAKING THE FOLLOWING MEDICATIONS: Advair Diskus Inhalation : daily. Aspirin Oral : 325mg. Atenolol Oral : 25 mg daily. BuPROPion HCl Oral : 150mg daily. Carisoprodol Oral : 350 mg 4x a day. Crestor Oral : 10 mg daily. Diazepam Oral : 10 mg at bedtime. Docusate Sodium Oral : Capsule 100 mg, 2 capsules. Doxazosin Mesylate Oral : Tablet 2 mg, 1 tablet. Hydrocodone-Acetaminophen Oral : 10 mg, prn. Naproxen Oral : 500 mg 2x a day, prn. Senna Oral : Tablet 8.6 mg, 2 tablets. Venlafaxine HCl Oral : 50 mg 2x a day. Ventolin HFA Inhalation : 2 puffs, prn. (Electronically signed by Ish Acevedo DO 10/27/2016 21:37)
--- NOTE | 2016-10-27 21:37 | ED MAR SUMMARY ---
..... Medication Administration Record [facility] [address] [place] [address] Patient: TARAH NINO Visit ID: [id number] 61y, M Weight: 120.2 kg Height/Length: 66 in BMI: 42.8 ALLERGIES: No Known Drug Allergy Start 13:05 10/27/2016 Trinidad Whitfield R.N., Continued Upon Disposition 15:10/27/2016 Trinidad Whitfield R.N. Medication Administered: IV NS (SALINE), Dose: IV Fluids over 2 hour(s), Rate: 250 mL/hr, Bolus: 500 mL over 30 minute(s), Dispensed: 1000 mL bag, Site: #1 left AC. Medication Ordered: IV NS : initial bolus 500 mL (1000 mL/hr), then 250 mL/hr for X2 (NOW). Given 13:07 10/27/2016 Trinidad Whitfield R.N. Medication Administered: ZOFRAN [IVP] (ONDANSETRON HCL), Dose: 4 mg IVP over 1 minute(s), Site: #1 left AC. Medication Ordered: Zofran IV 4 mg (NOW). Given 15:03 10/27/2016 Trinidad Whitfield R.N. Medication Administered: ASPIRIN [PO], Dose: 325 mg Tablets PO. Medication Ordered: Aspirin PO 325 mg (if not taken today).
--- NOTE | 2016-10-27 21:37 | ED MED RECONCILIATION SUMMARY ---
Patient: TARAH NINO Medication Reconciliation Report [facility] VisitID: [id number] [address] [place] [address] 61y, M Registration Date/Time: 10/27/2016 Weight: 120.2 kg Height/Length: 66 in. BMI: 42.8 ALLERGIES: No Known Drug Allergy The patient's Home Medications are listed below: CONTINUE TAKING THE FOLLOWING MEDICATIONS: Advair Diskus Inhalation, daily Aspirin Oral 325mg Atenolol Oral 25 mg, daily BuPROPion HCl Oral 150mg, daily Carisoprodol Oral 350 mg, 4x a day Crestor Oral 10 mg, daily Diazepam Oral 10 mg, at bedtime Docusate Sodium Oral (100 mg) 2 capsules Doxazosin Mesylate Oral (2 mg) 1 tablet Hydrocodone-Acetaminophen Oral 10 mg Naproxen Oral 500 mg, 2x a day Senna Oral (8.6 mg) 2 tablets Venlafaxine HCl Oral 50 mg, 2x a day Ventolin HFA Inhalation 2 puffs The source(s) of the original Home Medication information: Not obtained. The following Medications were given to the patient in the Emergency Department: IV NS IV Fluids bolus 500 mL over 30 minute(s), then 250 mL/hr, administered: 10/27/2016 1:05:00 PM Zofran [IVP] IVP 4 mg, administered: 10/27/2016 1:07:00 PM Aspirin [PO] PO 325 mg, administered: 10/27/2016 3:03:00 PM The following Medications were prescribed to the patient: None.
--- NOTE | 2016-10-27 21:37 | ED DISCHARGE INSTRUCTIONS ---
Patient: TARAH NINO General Instructions [facility] VisitID: [id number] [address] [place] [address] 61y, M Registration Date/Time: 10/27/2016 Nontraumatic cerebrovascular accident- thrombotic ischemic infarct involving left anterior cerebral artery. TPA given and patient last known well 3 or more hours prior to administration. TPA was not administered because the time patient was last known well was greater than 3 hours prior to arrival and exclusion criteria were present. No hemorrhagic infarct or subarachnoid hemorrhage. INSTRUCTIONS Your Current Medications: CONTINUE TAKING THE FOLLOWING MEDICATIONS: Advair Diskus Inhalation : daily. Aspirin Oral : 325mg. Atenolol Oral : 25 mg daily. BuPROPion HCl Oral : 150mg daily. Carisoprodol Oral : 350 mg 4x a day. Crestor Oral : 10 mg daily. Diazepam Oral : 10 mg at bedtime. Docusate Sodium Oral : Capsule 100 mg, 2 capsules. Doxazosin Mesylate Oral : Tablet 2 mg, 1 tablet. Hydrocodone-Acetaminophen Oral : 10 mg, prn. Naproxen Oral : 500 mg 2x a day, prn. Senna Oral : Tablet 8.6 mg, 2 tablets. Venlafaxine HCl Oral : 50 mg 2x a day. Ventolin HFA Inhalation : 2 puffs, prn. (Electronically signed by Ish Acevedo DO 10/27/2016 21:37)
--- NOTE | 2016-10-27 21:37 | ED MED RECONCILIATION SUMMARY ---
Patient: TARAH NINO Medication Reconciliation Report [facility] VisitID: [id number] [address] [address] [place] [address] 61y, M Registration Date/Time: 10/27/2016 Weight: 120.2 kg Height/Length: 66 in. BMI: 42.8 ALLERGIES: No Known Drug Allergy The patient's Home Medications are listed below: CONTINUE TAKING THE FOLLOWING MEDICATIONS: Advair Diskus Inhalation, daily Aspirin Oral 325mg Atenolol Oral 25 mg, daily BuPROPion HCl Oral 150mg, daily Carisoprodol Oral 350 mg, 4x a day Crestor Oral 10 mg, daily Diazepam Oral 10 mg, at bedtime Docusate Sodium Oral (100 mg) 2 capsules Doxazosin Mesylate Oral (2 mg) 1 tablet Hydrocodone-Acetaminophen Oral 10 mg Naproxen Oral 500 mg, 2x a day Senna Oral (8.6 mg) 2 tablets Venlafaxine HCl Oral 50 mg, 2x a day Ventolin HFA Inhalation 2 puffs The source(s) of the original Home Medication information: Not obtained. The following Medications were given to the patient in the Emergency Department: IV NS IV Fluids bolus 500 mL over 30 minute(s), then 250 mL/hr, administered: 10/27/2016 1:05:00 PM Zofran [IVP] IVP 4 mg, administered: 10/27/2016 1:07:00 PM Aspirin [PO] PO 325 mg, administered: 10/27/2016 3:03:00 PM The following Medications were prescribed to the patient: None.
[2016-10-27 22:34] VITALS: BP 141/75
[2016-10-28] MEDS ORDERED: ASMANEX IN (00:13)
[2016-10-28] MEDS ORDERED: ATORVASTATIN CA10 MG PO (00:14)
[2016-10-28] MEDS ORDERED: BUPROPION HCL150 M3 PO (00:15)
[2016-10-28] MEDS ORDERED: CARISOPRODOL350 MG PO (00:15)
[2016-10-28] MEDS ORDERED: COLACE100 MG PO (00:16)
[2016-10-28] MEDS ORDERED: DIAZEPAM10 MG PO (00:16)
[2016-10-28] MEDS ORDERED: FLOVENT HFA110 MCG IN (00:17)
[2016-10-28] MEDS ORDERED: CARDURA2 MG PO (00:17)
[2016-10-28] MEDS ORDERED: NAPROXEN250 MG PO (00:19)
[2016-10-28] MEDS ORDERED: PHENERGAN EQUIV25 MG PO (00:20)
[2016-10-28] MEDS ORDERED: PANTOPRAZOLE SO40 MG PO (00:20)
[2016-10-28] MEDS ORDERED: VENTOLIN HFA IN (00:21)
[2016-10-28] MEDS ORDERED: SENNA-LAX8.6 MG PO (00:21)
--- NOTE | 2016-10-28 02:22 | HISTORY AND PHYSICAL ---
ADMITTED: 10/27/2016 HISTORY OF PRESENT ILLNESS: The patient is a 61-year-old white male, well known to me, who developed a very severe frontal headache in the morning of 10/26/2016. This persisted. At some point in time in the midmorning until early afternoon, he developed problems with his speech and some slight right-sided weakness and some difficulty swallowing. His caregiver called his , and his called, I believe, the [facility] ambulance crew and they came out to evaluate the patient some time on 2016. The ambulance crew did not feel he needed to go to the hospital. The patient continued to have difficulty this morning with difficulty with his speech and some slight weakness. His called my office and we suggested she bring him in. Before she left home, the patient became more confused and somewhat combative and we felt he should go directly to the emergency department. She took him there. He had a thorough evaluation and this included an initial brain CT scan, which showed an old frontal infarct, but no acute changes. He also had a carotid artery Doppler test done which showed no significant occlusion. Chest x-ray was normal. EKG was stable. He was admitted to the floor and an MRI scan was done this evening. The MRI scan showed a left frontal lobe medially located acute infarct with no mass effect and no evidence of intracranial hemorrhage. The images were then sent to the [facility] neurology consultants [facility]. Their initial thought was due to the time frame, he was not a candidate for thrombolysis or any attempt at clot extraction. He has been admitted for further care. MEDICAL/SURGICAL HISTORY: Past medical history: Remarkable for fairly longstanding hypertension. He had a left frontal stroke in 2009 and recovered fairly well from this. He had some slight dysarthria, but was generally fairly functional. Other problems include hyperlipidemia, obesity, lumbar disk disease, osteoarthritis, back muscle spasm, depression, and sleep apnea. Past surgical history: Remarkable for arthroscopic surgery on the right knee for a meniscus tear and anterior cruciate ligament tear done in 2007. MEDICATIONS: Include: 1. Atenolol 25 mg p.o. b.i.d. for blood pressure control. 2. Doxazosin 4 mg at bedtime to help with blood pressure and to help with urine flow. 3. Aspirin 325 mg daily. 4. Atorvastatin 10 mg daily. 5. Hydrocodone 10/acetaminophen 325 one 4 times daily and occasionally 5 times daily for pain control. 6. Oxycodone 10/acetaminophen 325 one-half or one tablet once or twice daily p.r.n. extreme pain. He is prescribed 30 of these, which last 3 months. 7. Other medications include bupropion 150 mg strength twice daily for depression. 8. Promethazine 12.5 mg 1 or 2 q.6 h. p.r.n. nausea. 9. CPAP mask at night. 10. Diazepam ------- 1 at bedtime p.r.n. for muscle tightness and anxiety. 11. Carisoprodol 350 mg 1 in the morning and 1 in the afternoon for back muscle spasm. 12. The patient does use an albuterol inhaler p.r.n. chest congestion and wheezing. 13. QVAR inhaler 2 puffs twice daily routinely if he is having ongoing flares of asthma. ALLERGIES: 1. NO KNOWN ALLERGIES. SOCIAL HISTORY: Indicates the patient is . He is from his currently due to financial concerns and a variety of social problems. The patient has been a smoker. He continues to smoke several cigarettes now and then, but not necessarily every day. He does not drink alcohol. 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 Since then, he has been disabled from working. FAMILY HISTORY: Remarkable for a father who around age 99, who may have had a stroke. The patient's mother around age 65 or so. She had diabetes and some type of cancer and of the cancer. REVIEW OF SYSTEMS: HEENT has been okay. Respiratory has been remarkable for some occasional asthma and bronchospasm problems. Gastrointestinal has been okay with no major nausea, vomiting, or diarrhea. Genitourinary: Remarkable for some difficulty with passing urine, but this has been controlled well with the doxazosin. Musculoskeletal: Remarkable for chronic low back pain as well as knee pain and shoulder pain issues and neck pain issues. Neurological: Remarkable for some slight dysarthria and some slight word -finding difficulties from his residual stroke. He has not really had any major weakness. He did have some right-sided weakness initially following the stroke, but this has pretty much resolved. Psychiatric: Remarkable for some depression issues. Skin: Remarkable for an inclusion cyst on the right mid back area. PHYSICAL EXAMINATION: GENERAL: Reveals the patient to be overweight. He is in no acute distress. VITAL SIGNS: Temperature is in the 97-98 range. Blood pressure is in the 140/75 range. Pulse is in the mid 50s to low 60s and regular. O2 saturation is 97% on 2 L per nasal prongs. HEENT: Head is normal. Ear canals and tympanic membranes are normal. Eyes show normal extraocular movements. Funduscopic exam shows flat discs but no obvious hemorrhage or exudates. Nose and throat are clear. NECK: Supple. Carotid pulses are normal. No bruits are heard. CHEST: Reveals some scattered rhonchi, left and right. No significant wheezing is noted. Breath sounds are generally decreased. HEART: Reveals normal S1 and S2 with no S3. There is a grade 1/6 systolic murmur along the left sternal border. Axillary areas show no masses. ABDOMEN: Obese with no organomegaly or mass. There is no tenderness. Bowel tones are normal. GENITALIA: Show a normal uncircumcised male. Heard catheter is in place. Testes are descended bilaterally. There is no evidence of testicular mass. There is no evidence of hernia. RECTAL: Reveals a normal external rectum. Digital exam reveals the prostate gland to be somewhat difficult to feel, but is not tremendously enlarged. There are no rectal masses. Stool is brownish and guaiac-negative. EXTREMITIES: Show trace edema, left and right. Dorsalis pedis +1 pulses are noted. The patient does seem to have equal sensation left and right on his feet. NEUROLOGIC: Reveals cranial nerves to show very slight right facial weakness. 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 There is no hyperreflexia. Cranial nerves are symmetric other than the slight right facial muscle weakness. SKIN: Normal except for the inclusion cyst in the right mid back area. LAB/IMAGING: Laboratory studies show UA to be normal with specific gravity of 1.030. Hemoglobin is 14.4, hematocrit is 47.5, white blood cell count is 10,500. PT/INR is 1.0, PTT is 30. Sodium is 144, potassium 4.5, chloride 109, CO2 28, glucose 105, BUN 22, creatinine 1.4. Alkaline phosphatase is 69, SGOT is 10, SGPT is 25. CPK is 108. Magnesium level is 2.0. Troponin I is less than 0.05. EKG shows sinus bradycardia with no acute changes. Brain CT scan done initially shows old left frontal infarct with no acute changes. Chest x-ray is normal. Carotid Doppler test reveals 16% to 49% narrowing of the left and right internal carotid arteries with some mild plaque. MRI scan shows left frontal infarct located medially in the distribution of the anterior cerebral artery. IMPRESSION: 1. The patient is presenting with left frontal lobe infarct. He has remote left frontal infarct from 2010 in the distribution of the middle cerebral artery vessels. 2. Other problems include longstanding hypertension. 3. Hyperlipidemia. 4. Obesity. 5. History of smoking. 6. Lumbar disk disease and osteoarthritis causing chronic pain issues. 7. Sleep apnea. 8. Chronic obstructive pulmonary disease with some problems with bronchospasm. 9. Urinary outflow obstruction, which has required placement of Heard catheter. PLAN: The patient is admitted. He will keep up with n.p.o. status. He will be scheduled for a swallow evaluation and physical therapy evaluation. He may possibly need a feeding tube. Blood pressure will be addressed with labetalol if systolic elevates greater than 180 or diastolic elevates greater than 120. He will be started on incentive spirometry. He will be started on pantoprazole to prevent ulcers in the stomach. He will be encouraged to sit up and to try to walk short distances beginning tomorrow. He will need Furniture Refinisher consult as he may need to be in a intermediate situation for recovery or at least will need home health care and home physical therapy. Case will be reviewed with the Neurology consultants at the [facility] tomorrow to see if they have any additional input. The patient will continue with aspirin at 300 mg by rectal suppository daily until he is able to swallow this.
[2016-10-28 03:19] VITALS: BP 118/43
[2016-10-28 07:11] VITALS: BP 113/62
[2016-10-28 11:44] VITALS: BP 133/76
--- NOTE | 2016-10-28 12:39 | DIAGNOSTIC IMAGING REPORT ---
PROCEDURE: 2-D M-mode echo Doppler CLINICAL INDICATION: CVA TECHNIQUE: Standard 2-D M-mode echo Doppler COMPARISON: None available FINDINGS: The aortic valve is normal without evidence for stenosis or insufficiency the mitral valve is normal in its configuration without vegetations apparent no stenosis or MR seen. Tricuspid valve exhibits trace TR with RV systolic pressure elevated at 41. The pulmonic valve is normal no embolic source seen on these valves left and right atrial dimension is normal LVH is present LV contractility is preserved with an ejection fraction of 62%. Right ventricle is increased in size moderately. With mild reduction of right ventricular function. RV systolic pressure elevated at 41 aortic root is seen to be increased in size and 4.0 cm pericardium is normal IMPRESSION: No embolic source seen Ejection fraction 62% with normal contraction RVE with mild decrease and function RVSP 41 LVH Aortic root enlarged and 4.0 cm Trace TR
[2016-10-28 14:44] VITALS: BP 142/85
[2016-10-28 18:58] VITALS: BP 146/69
[2016-10-28 22:27] VITALS: BP 145/71
[2016-10-29 02:40] VITALS: BP 129/68
[2016-10-29 06:45] VITALS: BP 149/76
[2016-10-29 10:35] VITALS: BP 151/78
[2016-10-29 14:39] VITALS: BP 158/85
[2016-10-29 18:32] VITALS: BP 143/83
[2016-10-29 22:53] VITALS: BP 137/86
[2016-10-30 04:00] VITALS: BP 142/72
[2016-10-30 06:56] VITALS: BP 141/75
[2016-10-30 10:36] VITALS: BP 133/76
[2016-10-30 14:35] VITALS: BP 149/84
[2016-10-30 18:14] VITALS: BP 174/78
[2016-10-30 23:52] VITALS: BP 139/81
[2016-10-31 03:21] VITALS: BP 127/77
[2016-10-31 07:20] VITALS: BP 144/87
[2016-10-31 10:30] VITALS: BP 136/71
[2016-10-31 14:24] VITALS: BP 152/80
[2016-10-31 18:17] VITALS: BP 135/80
[2016-10-31 21:40] VITALS: BP 138/80
[2016-11-01] MEDS ORDERED: ATENOLOL25 MG PO (00:14)
[2016-11-01] MEDS ORDERED: VICODIN HP1 TA1 PO (00:18)
[2016-11-01] MEDS ORDERED: ENDOCET1 TA3 PO (00:19)
[2016-11-01 02:34] VITALS: BP 117/74
[2016-11-01 07:16] VITALS: BP 147/94
[2016-11-01] MEDS ORDERED: CLOPIDOGREL75 MG PO (08:42)
--- NOTE | 2016-11-01 08:50 | Provider's Discharge Care Plan ---
Problem, Goal, Plan Problem List 1. Acute CVA (cerebrovascular accident) Goals: Improve disease control, Improve function, Improved health/wellness, Increase independence, Improve nutrition status Instructions: Follow up as directed, Take meds as directed, Reduce stress, Stop smoking, Reduce aspirin to 81 mg daily. Begin clopidogrel 75 mg daily. Continue atorvastatin. Work the physical therapy and speech therapy to regain function. Avoid smoking completely 2. Lumbar disc disease Goals: Improve disease control, Improve function, Improved health/wellness, Increase independence, Improve nutrition status Instructions: Follow up as directed, Increase activity level, Take meds as directed, Reduce stress, Stop smoking, Reduce hydrocodone/APAP dose to 1/2 tab every 4-6h as needed for pain. 3. Essential hypertension Goals: Improve disease control, Improve function, Improved health/wellness, Increase independence, Improve nutrition status Instructions: Follow up as directed, Increase activity level, Take meds as directed, Stop smoking, Take Atenolon at 25 mg every am only 4. Muscle spasm of back Goals: Improve disease control, Improve function, Improved health/wellness, Increase independence Instructions: Follow up as directed, Increase activity level, Avoid processed foods 5. Facet arthropathy, lumbar
[2016-11-01 11:27] VITALS: BP 121/71
--- NOTE | 2016-11-06 13:35 | DISCHARGE SUMMARY ---
ADMIT DATE: 10/27/2016 DISCHARGE DATE: 11/01/2016 ADMITTING DIAGNOSIS: 1. Probable acute stroke DISCHARGE DIAGNOSES: 1. Left frontal acute cerebrovascular accident involving the left anterior cerebral artery distribution 2. Other problems include a prior history of a left frontal stroke in 2009, in the middle cerebral artery distribution 3. Other longstanding problems include hypertension 4. Hyperlipidemia 5. Obesity 6. Lumbar disk disease 7. Depression 8. Sleep apnea 9. Anxiety issues 10. Chronic obstructive pulmonary disease with bronchospasm PROCEDURE: 1. None HOSPITAL COURSE: The patient is a 61-year-old male who had generally been doing okay and functioning fairly well after recovering from a left frontal stroke occurring in 2009. He started to develop symptoms of significant difficulty with speaking and some slight weakness the day prior to his presentation to the emergency department. He apparently was evaluated at home by EMS personnel and was felt to be stable and not needing to go to the hospital. By the following morning, he seemed worse and was having difficulty walking due to right-sided weakness and had marked speech difficulties and was not able to swallow or eat due to difficulties with swallowing. He was transferred to [facility] emergency department and evaluated. Initial CT scan was done, which showed no evidence of acute change. He was admitted and kept n.p.o. and on fluid replacement and has continued with aspirin, given per rectum. He did not really show any significant progression of symptoms. When he had presented to the emergency department, Neurology Service at the [facility] was contacted, and they felt he was not a candidate for any type of lytic therapy due to the time frame involved from onset of initial symptoms to time of presentation to the emergency department. The patient did have a brain MRI scan done on 10/28/2016. This indeed showed an acute stroke in the left anterior cerebral artery area affecting the left frontal lobe area. There was no mass effect or evidence of hemorrhage. The patient was continued on n.p.o. status and started on physical therapy and had a swallowing evaluation. With the swallowing evaluation, he did actually quite well and seemed to be making substantial recovery by 10/29/2016. He was able to do okay with soft foods and nectar-thick liquids at mealtimes and seemed to do okay with thin liquids in between meals if he just was only swallowing the thin liquids by themselves. He started working with physical therapist on general strengthening. He was able to maintain his oral intake and avoid aspiration over the next several days. He was able to be up and around with a walker and with his cane. His blood pressure stabilized. He was monitored for evidence of arrhythmias. He showed 1 episode of a tachyarrhythmia, lasting several seconds but was asymptomatic and this did not recur. He was mostly in a sinus rhythm in the 50s to 60s. By the fifth hospital day, he was up and around, doing okay. He had seen discharge planning. He had arranged home therapy with the business planner and felt this was going to be okay. His agreed. He is stable with his blood pressure and with this his overall exam. He was started on clopidogrel during his hospitalization and seemed to be tolerating this okay. DISCHARGE INSTRUCTIONS/MEDICATIONS: Disposition: The patient is discharged home in the care of his and a caregiver whom he has coming in for 4 or 5 hours on a daily basis. His will plan to be with him at night. He will continue his usual dose of Atenolol of 25 mg but we will reduce this to just 1 every morning. He will start on Clopidogrel 75 mg daily. He will continue with atorvastatin 10 mg daily, bupropion 150 mg daily , carisoprodol 350 mg tablets, 1/2 tablet b.i.d. as needed for muscle spasm. Diazepam 10 mg strength 1/2 tablet at bedtime if needed for sleeplessness and muscle spasms. He will also continue doxazosin 2 mg at bedtime and will continue with fluticasone 2 puffs twice daily and albuterol 2 puffs every 3-4 hours as needed for chest congestion and wheezing. He will continue with hydrocodone 10/APAP 325 mg strength 1-1/2 tablet every 6 hours for pain if necessary. He will also continue with oxycodone 10/APAP 325, one tablet at bedtime for severe pain. He will keep up with pantoprazole 40 mg daily for stomach acid control and promethazine 12.5 mg every 6 hours as needed for nausea. Follow up will be in my office in about 1 week. He will continue the sleep apnea medications. During his hospitalization, he did have some problems initially with urinary retention. He had a Heard catheter for about 2 days, and this was stopped, and following removal he was able to pass his urine okay. He was not felt to be at high risk for recurrence of this problem.
== END 2016-11-01 13:10 | disposition home or self-care (01) | DRG 65 ==
LOC: ED SRH 12:22 → TRANS SRH 14:59 → ACUTE2 SRH 16:26
PROVIDERS: ADMIT Emergency Medicine
DX: I63.522 Cerebral infarction due to unspecified occlusion or stenosis of left anterior cerebral artery (principal); G81.91 Hemiplegia, unspecified affecting right dominant side; R47.1 Dysarthria and anarthria; R13.10 Dysphagia, unspecified; I69.322 Dysarthria following cerebral infarction; I10 Essential (primary) hypertension; J44.9 Chronic obstructive pulmonary disease, unspecified; E78.5 Hyperlipidemia, unspecified; Z87.891 Personal history of nicotine dependence
CPT/HCPCS: 20011; 20014; 83475; 85241; 90001; 90004; 90047; 90074; 90100; 90155; 90616; 91004; 91556; 92095; 92610; 92690; 92710; 92720; 92760; 92761; 92762; 92763; 92764; 92765; 92766; 92767; 94001; 94050; 94060; 95059